=== PATIENT | female | born 1960 | race Caucasian/White ===

== ENCOUNTER → 2016-07-29 | Outpatient (CLI) | payer MEDICARE, OTHER ==
[~2016-07-29] MED LIST: ACIDOPHILUS PO; ADVAIR 100/28 DISKUS IH; ALAVERT10 M1 PO; ALBUTEROL0.83 MG/ML IH; ASPIR-LOW81 MG PO; ASPIRIN E.C. 8181 MG PO; BENTYL 10MG10 MG/CAP PO; BIOTIN10000 MC1; CELEBREX 200MG200 MG PO; CELEXA 20MG20 MG/TAB PO; CENTRUM1 TAB PO; CHANTIX0.5 MG PO; CLEOCIN HC150 MG/CAP PO; CREON 120000 U-1 ECC PO; CYMBALTA 60MG60 MG; DYAZIDE 25 MG-31 CAP PO; ELAVIL100 MG PO; FISH OIL SUPER1 SGL PO; FLEXERIL 1010 MG/TAB PO; FLINTSTONES1 CTB PO; FLONASE NASAL S16 GM NS; GLUCOSAMIN 500 PO; IMITREX 25MG TA25 MG PO; JAKAFI15 MG PO; LORTAB 5/500 501 TAB PO; MAXALT10 MG PO; MUCINEX D1 TER PO; NIRAVAM0.25 MG PO; NORCO 325 MG-51 TAB PO; NORCO 325 MG-7.1 TAB PO; NYSTATIN OR100 MU/ML PO; PEPCID 20MG TAB20 MG PO; PERCOCET 5/321 UDTAB PO; PREDNISONE20 MG PO; PROBIOTIC FORMU1 CAP PO; PROMETHAZINE V473 M2 PO; PROTONIX 40MG T40 MG PO; PROVENTIL0.09 MG/A1 IH; QUESTRAN4 GM/9 GM PO; REMERON SOLTAB45 MG PO; ROXICODONE 55 MG/TAB PO; RT ADVAIR 228 DISKUS IH; SINGULAIR 110 MG/TAB PO; SINGULAIR10 MG PO; SPIRIVA; SSKI PO; TRAMADOL50 MG PO; TUMS 5001250 MG PO; ULTRAM 50MG TAB50 MG PO; VOLTAREN 50MG T50 MG PO; VOLTAREN GEL 1%1 TU TP; ZOFRAN 4MG T4 MG/TAB PO; ZOFRAN ODT8 MG PO; iron; see list
[2016-07-29 11:25] LABS: BASO % 0.5 % (0.0-2.0); EOS # 0.2 (0.0-0.7); EOS % 2.7 % (0-4.0); GRAN # 4.1 (1.4-6.5); GRAN % 53.1 % (42.2-75.2); HEMOGLOBIN 13.3 g/dl (12.5-16.0); LYMPH # 2.8 (1.2-3.4); LYMPH % 35.8 % (20.0-51.0); MEAN CELL VOLUME 84 fl (80.0-100.0); MEAN CORPUSCULAR HEMOGLOBIN 28 pg (27.0-31.0); MEAN CORPUSCULAR HGB CONC 33 g/dl (33.0-37.0); MEAN PLATELET VOLUME 10.1 fl (7.4-10.4); MONO # 0.6 (0.1-0.6); MONO % 7.3 % (1.7-9.3); PLATELET COUNT 625 K/mm3 (130-400); RED BLOOD COUNT 4.82 M/mm3 (4.10-5.30); REDCELL DISTRIBUTION WIDTH-CV 16.1 % (11.5-14.5); RETIC % 1.3 % (0.5-3.52); WHITE BLOOD COUNT 7.7 K/mm3 (4.8-10.8)
[2016-07-29 11:46] LABS: ADJUSTED CALCIUM 9.6 mg/dL (8.4-10.2); ALBUMIN 4.9 gm/dL (3.5-5.0); BILIRUBIN,TOTAL 0.5 mg/dL (0.0-1.0); CALCIUM 10.3 mg/dL (8.4-10.2); CREATININE, serum 0.8 mg/dL (0.52-1.25); POTASSIUM 3.9 mmol/L (3.4-5.0); TOTAL PROTEIN 8.6 gm/dL (6.4-8.2)
[2016-07-29 13:47] LABS: HEMATOCRIT 40.5 % (37.0-47.0)
== END ==
LOC: COL.LAB 11:05
PROVIDERS: Internal Medicine
DX: D75.1 Secondary polycythemia (principal)

== ENCOUNTER → 2016-08-19 | Outpatient (CLI) | payer MEDICARE, OTHER ==
[2016-08-19 10:32] LABS: BASO % 0.7 % (0.0-2.0); EOS # 0.2 (0.0-0.7); GRAN # 3.2 (1.4-6.5); GRAN % 56.3 % (42.2-75.2); LYMPH # 1.7 (1.2-3.4); LYMPH % 30.4 % (20.0-51.0); MEAN CELL VOLUME 86 fl (80.0-100.0); MEAN CORPUSCULAR HGB CONC 32 g/dl (33.0-37.0); MEAN PLATELET VOLUME 9.6 fl (7.4-10.4); MONO # 0.5 (0.1-0.6); MONO % 9.4 % (1.7-9.3); PLATELET COUNT 592 K/mm3 (130-400); RED BLOOD COUNT 3.68 M/mm3 (4.10-5.30); REDCELL DISTRIBUTION WIDTH-CV 17.3 % (11.5-14.5); WHITE BLOOD COUNT 5.7 K/mm3 (4.8-10.8)
[2016-08-19 10:34] LABS: HEMOGLOBIN 10.2 g/dl (12.5-16.0); MEAN CORPUSCULAR HEMOGLOBIN 28 pg (27.0-31.0)
[2016-08-19 12:37] LABS: HEMATOCRIT 31.7 % (37.0-47.0)
== END ==
LOC: COL.LAB 10:05
PROVIDERS: Internal Medicine
DX: D75.1 Secondary polycythemia (principal)

== ENCOUNTER → 2016-09-30 | Outpatient (CLI) | payer MEDICARE ==
[2016-09-30 14:35] LABS: BASO # 0.1 (0.0-0.2); BASO % 1.1 % (0.0-2.0); EOS # 0.4 (0.0-0.7); GRAN # 5.2 (1.4-6.5); GRAN % 66.7 % (42.2-75.2); HEMOGLOBIN 12.4 g/dl (12.5-16.0); LYMPH # 1.1 (1.2-3.4); LYMPH % 14.3 % (20.0-51.0); MEAN CELL VOLUME 88 fl (80.0-100.0); MEAN CORPUSCULAR HEMOGLOBIN 29 pg (27.0-31.0); MEAN CORPUSCULAR HGB CONC 33 g/dl (33.0-37.0); MEAN PLATELET VOLUME 9.8 fl (7.4-10.4); MONO % 12.4 % (1.7-9.3); PLATELET COUNT 497 K/mm3 (130-400); RED BLOOD COUNT 4.32 M/mm3 (4.10-5.30); REDCELL DISTRIBUTION WIDTH-CV 17.4 % (11.5-14.5); WHITE BLOOD COUNT 7.8 K/mm3 (4.8-10.8)
[2016-09-30 15:02] LABS: HEMATOCRIT 37.8 % (37.0-47.0)
== END ==
LOC: COL.LAB 09:09
PROVIDERS: Internal Medicine
DX: D75.1 Secondary polycythemia (principal)

== ENCOUNTER → 2016-10-27 | Outpatient (CLI) | payer MEDICARE ==
[2016-10-27 10:25] LABS: WHITE BLOOD COUNT 5.7 K/mm3 (4.8-10.8)
[2016-10-27 10:26] LABS: HEMOGLOBIN 11.8 g/dl (12.5-16.0)
[2016-10-27 11:19] LABS: MEAN CELL VOLUME 89 fl (80.0-100.0); MEAN CORPUSCULAR HEMOGLOBIN 29 pg (27.0-31.0); MEAN CORPUSCULAR HGB CONC 33 g/dl (33.0-37.0); MEAN PLATELET VOLUME 10.1 fl (7.4-10.4); PLATELET COUNT 586 K/mm3 (130-400); RED BLOOD COUNT 4.01 M/mm3 (4.10-5.30); REDCELL DISTRIBUTION WIDTH-CV 17.2 % (11.5-14.5)
[2016-10-27 11:52] LABS: ADD PATHOLOGY DIFF REVIEW NO
[2016-10-27 12:16] LABS: BAND 3 % (0-10); BASOPHIL 1 % (0-2); EOSINOPHIL 8 % (0-4); NEUTROPHILS 35 % (42.0-75.2); TOTAL CELLS COUNTED 100
[2016-10-27 15:44] LABS: HEMATOCRIT 35.5 % (37.0-47.0)
== END ==
LOC: COL.LAB 09:08
PROVIDERS: Internal Medicine
DX: D75.1 Secondary polycythemia (principal)

== ENCOUNTER 2016-11-23 05:47 | Day surgery (SDC) | payer MEDICARE ==
[2008-02-11 04:48] VITALS: BP 138/64
[~2016-11-23] VITALS: Ht 165.1 cm; Wt 91.9 kg
[2016-11-23] VITALS (8 sets, daily range): BP systolic 118–133; BP diastolic 68–77; PULSE 91–98; TEMP 97.3–98.2
[~2016-11-23 05:47] MED LIST changes: -ALBUTEROL0.83 MG/ML IH; -FLONASE NASAL S16 GM NS; -MAXALT10 MG PO; -MUCINEX D1 TER PO; -NYSTATIN OR100 MU/ML PO; -PROBIOTIC FORMU1 CAP PO; -PROMETHAZINE V473 M2 PO; -PROVENTIL0.09 MG/A1 IH; -RT ADVAIR 228 DISKUS IH; -VOLTAREN 50MG T50 MG PO; -VOLTAREN GEL 1%1 TU TP; -ZOFRAN ODT8 MG PO
[2016-11-23] MEDS ORDERED: PROVENTIL0.09 MG/A1 IH (06:35)
[2016-11-23] MEDS ORDERED: ALBUTEROL0.83 MG/ML IH (06:36)
[2016-11-23] MEDS ORDERED: FLONASE NASAL S16 GM NS (06:42)
[2016-11-23] MEDS ORDERED: RT ADVAIR 228 DISKUS IH (06:43)
[2016-11-23] MEDS ORDERED: NYSTATIN OR100 MU/ML PO (06:46)
[2016-11-23] MEDS ORDERED: ZOFRAN ODT8 MG PO (06:49)
[2016-11-23] MEDS ORDERED: PROBIOTIC FORMU1 CAP PO (06:50)
[2016-11-23] MEDS ORDERED: MUCINEX D1 TER PO (06:51)
[2016-11-23] MEDS ORDERED: PROMETHAZINE V473 M2 PO (06:51)
[2016-11-23] MEDS ORDERED: ULTRAM 50MG TAB50 MG PO (06:52)
[2016-11-23] MEDS ORDERED: VOLTAREN GEL 1%1 TU TP (06:54)
[2016-11-23] MEDS ORDERED: MAXALT10 MG PO (06:59)
[2016-11-23] MEDS ORDERED: VOLTAREN 50MG T50 MG PO (06:59)
[2016-11-23] MEDS ORDERED: NORCO 325 MG-7.1 TAB PO (14:22)
[2016-11-23] MEDS ORDERED: ROXICODONE 55 MG/TAB PO (14:23)
== END 2016-11-23 15:00 | disposition home or self-care (01) ==
LOC: SDCO 05:47
DX: S46.012A Strain of muscle(s) and tendon(s) of the rotator cuff of left shoulder, initial encounter (principal); W19.XXXA Unspecified fall, initial encounter; Y93.89 Activity, other specified; D45 Polycythemia vera; J44.9 Chronic obstructive pulmonary disease, unspecified; K21.9 Gastro-esophageal reflux disease without esophagitis; E78.00 Pure hypercholesterolemia, unspecified; K30 Functional dyspepsia; K58.9 Irritable bowel syndrome, unspecified; G43.909 Migraine, unspecified, not intractable, without status migrainosus; R53.82 Chronic fatigue, unspecified; G47.30 Sleep apnea, unspecified; M77.9 Enthesopathy, unspecified; R41.0 Disorientation, unspecified; R13.10 Dysphagia, unspecified; F17.210 Nicotine dependence, cigarettes, uncomplicated; R73.9 Hyperglycemia, unspecified; C44.91 Basal cell carcinoma of skin, unspecified
CPT/HCPCS: C1713; J0171; J0690; J1100; J2250; J2370; J2405; J2704; J2795; J3010; J7120

== ENCOUNTER → 2016-11-25 | Outpatient (CLI) | payer MEDICARE ==
[~2016-11-25] MED LIST changes: +ALBUTEROL0.83 MG/ML IH; +FLONASE NASAL S16 GM NS; +MAXALT10 MG PO; +MUCINEX D1 TER PO; +NYSTATIN OR100 MU/ML PO; +PROBIOTIC FORMU1 CAP PO; +PROMETHAZINE V473 M2 PO; +PROVENTIL0.09 MG/A1 IH; +RT ADVAIR 228 DISKUS IH; +VOLTAREN 50MG T50 MG PO; +VOLTAREN GEL 1%1 TU TP; +ZOFRAN ODT8 MG PO
[2016-11-25 10:55] LABS: BASO # 0.1 (0.0-0.2); BASO % 0.6 % (0.0-2.0); EOS # 0.2 (0.0-0.7); EOS % 2.2 % (0-4.0); GRAN % 61.4 % (42.2-75.2); LYMPH # 2.7 (1.2-3.4); LYMPH % 27.2 % (20.0-51.0); MEAN CELL VOLUME 92 fl (80.0-100.0); MEAN CORPUSCULAR HGB CONC 33 g/dl (33.0-37.0); MEAN PLATELET VOLUME 9.5 fl (7.4-10.4); MONO # 0.8 (0.1-0.6); MONO % 8.3 % (1.7-9.3); PLATELET COUNT 519 K/mm3 (130-400); RED BLOOD COUNT 3.37 M/mm3 (4.10-5.30); REDCELL DISTRIBUTION WIDTH-CV 15.9 % (11.5-14.5); WHITE BLOOD COUNT 9.8 K/mm3 (4.8-10.8)
[2016-11-25 10:56] LABS: HEMOGLOBIN 10.1 g/dl (12.5-16.0); MEAN CORPUSCULAR HEMOGLOBIN 30 pg (27.0-31.0)
[2016-11-25 10:57] LABS: HEMATOCRIT 31.1 % (37.0-47.0)
== END ==
LOC: COL.LAB 09:16
PROVIDERS: Internal Medicine
DX: Z01.89 Encounter for other specified special examinations (principal)

== ENCOUNTER → 2016-12-30 | Outpatient (CLI) | payer MEDICARE ==
[2016-12-30 10:43] LABS: BASO % 0.6 % (0.0-2.0); EOS # 0.1 (0.0-0.7); EOS % 1.9 % (0-4.0); GRAN # 5.4 (1.4-6.5); GRAN % 75.3 % (42.2-75.2); HEMOGLOBIN 12.4 g/dl (12.5-16.0); LYMPH % 13.4 % (20.0-51.0); MEAN CELL VOLUME 89 fl (80.0-100.0); MEAN CORPUSCULAR HEMOGLOBIN 30 pg (27.0-31.0); MEAN CORPUSCULAR HGB CONC 34 g/dl (33.0-37.0); MONO # 0.6 (0.1-0.6); MONO % 8.4 % (1.7-9.3); PLATELET COUNT 463 K/mm3 (130-400); RED BLOOD COUNT 4.15 M/mm3 (4.10-5.30); REDCELL DISTRIBUTION WIDTH-CV 14.5 % (11.5-14.5); WHITE BLOOD COUNT 7.2 K/mm3 (4.8-10.8)
[2016-12-30 10:54] LABS: ADJUSTED CALCIUM 9.1 mg/dL (8.4-10.2); ALBUMIN 4.4 gm/dL (3.5-5.0); BILIRUBIN,TOTAL 0.5 mg/dL (0.0-1.0); CALCIUM 9.4 mg/dL (8.4-10.2); CREATININE, serum 0.84 mg/dL (0.52-1.25); POTASSIUM 4.3 mmol/L (3.4-5.0); TOTAL PROTEIN 7.2 gm/dL (6.4-8.2)
[2016-12-30 11:10] LABS: HEMATOCRIT 36.8 % (37.0-47.0)
== END ==
LOC: COL.LAB 09:59
PROVIDERS: Internal Medicine
DX: D75.1 Secondary polycythemia (principal)

== ENCOUNTER → 2017-01-27 | Outpatient (CLI) | payer MEDICARE ==
[2017-01-27 10:25] LABS: BASO % 0.6 % (0.0-2.0); EOS # 0.1 (0.0-0.7); EOS % 1.9 % (0-4.0); GRAN # 3.4 (1.4-6.5); GRAN % 52.3 % (42.2-75.2); HEMOGLOBIN 12.3 g/dl (12.5-16.0); LYMPH # 2.2 (1.2-3.4); LYMPH % 33.7 % (20.0-51.0); MEAN CELL VOLUME 89 fl (80.0-100.0); MEAN CORPUSCULAR HEMOGLOBIN 30 pg (27.0-31.0); MEAN CORPUSCULAR HGB CONC 34 g/dl (33.0-37.0); MEAN PLATELET VOLUME 9.7 fl (7.4-10.4); MONO # 0.7 (0.1-0.6); MONO % 10.9 % (1.7-9.3); PLATELET COUNT 544 K/mm3 (130-400); RED BLOOD COUNT 4.09 M/mm3 (4.10-5.30); REDCELL DISTRIBUTION WIDTH-CV 14.9 % (11.5-14.5); WHITE BLOOD COUNT 6.4 K/mm3 (4.8-10.8)
[2017-01-27 10:41] LABS: HEMATOCRIT 36.3 % (37.0-47.0)
== END ==
LOC: COL.LAB 10:06
PROVIDERS: Internal Medicine
DX: D75.1 Secondary polycythemia (principal)

== ENCOUNTER → 2017-03-09 | Outpatient (CLI) | payer MEDICARE ==
[2017-03-09 11:20] LABS: BASO # 0.1 (0.0-0.2); BASO % 0.7 % (0.0-2.0); EOS # 0.2 (0.0-0.7); EOS % 2.5 % (0-4.0); GRAN # 3.6 (1.4-6.5); GRAN % 52.9 % (42.2-75.2); HEMOGLOBIN 12.7 g/dl (12.5-16.0); LYMPH # 2.4 (1.2-3.4); LYMPH % 35.4 % (20.0-51.0); MEAN CELL VOLUME 89 fl (80.0-100.0); MEAN CORPUSCULAR HEMOGLOBIN 29 pg (27.0-31.0); MEAN CORPUSCULAR HGB CONC 33 g/dl (33.0-37.0); MEAN PLATELET VOLUME 9.6 fl (7.4-10.4); MONO # 0.6 (0.1-0.6); MONO % 8.1 % (1.7-9.3); PLATELET COUNT 723 K/mm3 (130-400); RED BLOOD COUNT 4.41 M/mm3 (4.10-5.30); WHITE BLOOD COUNT 6.8 K/mm3 (4.8-10.8)
[2017-03-09 11:25] LABS: HEMATOCRIT 39.1 % (37.0-47.0)
== END ==
LOC: COL.LAB 03-03 16:06
PROVIDERS: Internal Medicine
DX: D75.1 Secondary polycythemia (principal)

== ENCOUNTER → 2017-03-23 | Outpatient (CLI) | payer MEDICARE ==
[2017-03-23 09:29] LABS: BASO % 0.4 % (0.0-2.0); EOS # 0.1 (0.0-0.7); EOS % 1.4 % (0-4.0); GRAN # 4.8 (1.4-6.5); GRAN % 58.7 % (42.2-75.2); LYMPH # 2.5 (1.2-3.4); LYMPH % 31.3 % (20.0-51.0); MEAN CELL VOLUME 89 fl (80.0-100.0); MEAN CORPUSCULAR HGB CONC 33 g/dl (33.0-37.0); MEAN PLATELET VOLUME 9.3 fl (7.4-10.4); MONO # 0.6 (0.1-0.6); MONO % 7.8 % (1.7-9.3); PLATELET COUNT 590 K/mm3 (130-400); RED BLOOD COUNT 3.85 M/mm3 (4.10-5.30); REDCELL DISTRIBUTION WIDTH-CV 16.1 % (11.5-14.5); WHITE BLOOD COUNT 8.1 K/mm3 (4.8-10.8)
[2017-03-23 09:30] LABS: HEMATOCRIT 34.3 % (37.0-47.0); HEMOGLOBIN 11.4 g/dl (12.5-16.0); MEAN CORPUSCULAR HEMOGLOBIN 30 pg (27.0-31.0)
== END ==
LOC: COL.LAB 08:57
PROVIDERS: Internal Medicine
DX: D75.1 Secondary polycythemia (principal)

== ENCOUNTER → 2017-04-06 | Outpatient (CLI) | payer MEDICARE ==
[2017-04-06 11:33] LABS: BASO % 0.7 % (0.0-2.0); EOS # 0.1 (0.0-0.7); EOS % 1.8 % (0-4.0); GRAN # 2.5 (1.4-6.5); GRAN % 56.7 % (42.2-75.2); LYMPH # 1.4 (1.2-3.4); LYMPH % 31.7 % (20.0-51.0); MEAN CELL VOLUME 91 fl (80.0-100.0); MEAN CORPUSCULAR HGB CONC 33 g/dl (33.0-37.0); MEAN PLATELET VOLUME 9.3 fl (7.4-10.4); MONO # 0.4 (0.1-0.6); MONO % 8.9 % (1.7-9.3); PLATELET COUNT 586 K/mm3 (130-400); RED BLOOD COUNT 3.62 M/mm3 (4.10-5.30); REDCELL DISTRIBUTION WIDTH-CV 17.3 % (11.5-14.5); WHITE BLOOD COUNT 4.4 K/mm3 (4.8-10.8)
[2017-04-06 11:35] LABS: HEMOGLOBIN 10.8 g/dl (12.5-16.0); MEAN CORPUSCULAR HEMOGLOBIN 30 pg (27.0-31.0)
[2017-04-06 11:48] LABS: HEMATOCRIT 32.9 % (37.0-47.0)
== END ==
LOC: COL.LAB 10:58
PROVIDERS: Internal Medicine
DX: D75.1 Secondary polycythemia (principal)

== ENCOUNTER → 2017-04-20 | Outpatient (CLI) | payer MEDICARE ==
[2017-04-20 09:50] LABS: BASO % 0.4 % (0.0-2.0); EOS # 0.1 (0.0-0.7); EOS % 1.1 % (0-4.0); GRAN # 2.5 (1.4-6.5); GRAN % 53.3 % (42.2-75.2); LYMPH # 1.6 (1.2-3.4); LYMPH % 34.8 % (20.0-51.0); MEAN CELL VOLUME 94 fl (80.0-100.0); MEAN CORPUSCULAR HGB CONC 33 g/dl (33.0-37.0); MEAN PLATELET VOLUME 9.2 fl (7.4-10.4); MONO # 0.5 (0.1-0.6); MONO % 10.2 % (1.7-9.3); PLATELET COUNT 606 K/mm3 (130-400); RED BLOOD COUNT 3.59 M/mm3 (4.10-5.30); WHITE BLOOD COUNT 4.7 K/mm3 (4.8-10.8)
[2017-04-20 09:54] LABS: HEMATOCRIT 33.6 % (37.0-47.0); HEMOGLOBIN 11.1 g/dl (12.5-16.0); MEAN CORPUSCULAR HEMOGLOBIN 31 pg (27.0-31.0)
== END ==
LOC: COL.LAB 08:48
PROVIDERS: Internal Medicine
DX: D75.1 Secondary polycythemia (principal)

== ENCOUNTER → 2017-05-04 | Outpatient (CLI) | payer MEDICARE ==
[2017-05-04 10:37] LABS: BASO % 0.5 % (0.0-2.0); EOS # 0.1 (0.0-0.7); EOS % 1.5 % (0-4.0); GRAN # 2.1 (1.4-6.5); GRAN % 51.3 % (42.2-75.2); HEMOGLOBIN 10.7 g/dl (12.5-16.0); LYMPH # 1.4 (1.2-3.4); LYMPH % 35.4 % (20.0-51.0); MEAN CELL VOLUME 96 fl (80.0-100.0); MEAN CORPUSCULAR HEMOGLOBIN 32 pg (27.0-31.0); MEAN CORPUSCULAR HGB CONC 33 g/dl (33.0-37.0); MEAN PLATELET VOLUME 9.3 fl (7.4-10.4); MONO # 0.5 (0.1-0.6); MONO % 11.1 % (1.7-9.3); PLATELET COUNT 389 K/mm3 (130-400); RED BLOOD COUNT 3.35 M/mm3 (4.10-5.30); WHITE BLOOD COUNT 4.1 K/mm3 (4.8-10.8)
[2017-05-04 10:40] LABS: HEMATOCRIT 32.3 % (37.0-47.0)
== END ==
LOC: COL.LAB 09:59
PROVIDERS: Internal Medicine
DX: D75.1 Secondary polycythemia (principal); I10 Essential (primary) hypertension; J43.1 Panlobular emphysema; G43.009 Migraine without aura, not intractable, without status migrainosus; G47.33 Obstructive sleep apnea (adult) (pediatric); F33.41 Major depressive disorder, recurrent, in partial remission; M15.0 Primary generalized (osteo)arthritis

== ENCOUNTER → 2017-06-22 | Outpatient (CLI) | payer MEDICARE ==
[2017-06-22 10:25] LABS: BASO % 0.5 % (0.0-2.0); EOS # 0.1 (0.0-0.7); EOS % 1.1 % (0-4.0); GRAN # 3.7 (1.4-6.5); GRAN % 59.2 % (42.2-75.2); LYMPH # 1.8 (1.2-3.4); LYMPH % 29.2 % (20.0-51.0); MEAN CELL VOLUME 102 fl (80.0-100.0); MEAN CORPUSCULAR HGB CONC 34 g/dl (33.0-37.0); MEAN PLATELET VOLUME 9.9 fl (7.4-10.4); MONO # 0.6 (0.1-0.6); MONO % 9.4 % (1.7-9.3); PLATELET COUNT 510 K/mm3 (130-400); WHITE BLOOD COUNT 6.3 K/mm3 (4.8-10.8)
[2017-06-22 10:27] LABS: HEMOGLOBIN 11.9 g/dl (12.5-16.0); MEAN CORPUSCULAR HEMOGLOBIN 35 pg (27.0-31.0)
[2017-06-22 10:33] LABS: HEMATOCRIT 34.6 % (37.0-47.0)
== END ==
LOC: COL.LAB 09:47
PROVIDERS: Internal Medicine
DX: D75.1 Secondary polycythemia (principal)

== ENCOUNTER 2017-07-03 12:27 | Emergency (ER) | payer MEDICARE ==
[2008-02-11 04:48] VITALS: BP 138/64
[~2017-07-03] VITALS: Ht 165.1 cm; Wt 93.6 kg
[2017-07-03 12:33] VITALS: TEMP 98.8
[2017-07-03 15:17] VITALS: BP 132/75
[2017-07-03 16:21] VITALS: PULSE 84
== END 2017-07-03 16:23 | disposition home or self-care (01) ==
LOC: COL.ER 12:27
DX: J11.1 Influenza due to unidentified influenza virus with other respiratory manifestations (principal); B34.9 Viral infection, unspecified; B37.0 Candidal stomatitis; I10 Essential (primary) hypertension; K21.9 Gastro-esophageal reflux disease without esophagitis; J44.9 Chronic obstructive pulmonary disease, unspecified; D45 Polycythemia vera; G43.909 Migraine, unspecified, not intractable, without status migrainosus; F17.210 Nicotine dependence, cigarettes, uncomplicated; Z90.710 Acquired absence of both cervix and uterus; Z90.49 Acquired absence of other specified parts of digestive tract; Z90.89 Acquired absence of other organs; Z79.82 Long term (current) use of aspirin
CPT/HCPCS: J1450; J1885; J7030

== ENCOUNTER → 2017-08-03 | Outpatient (CLI) | payer MEDICARE ==
[2017-08-03 14:21] LABS: BASO % 0.3 % (0.0-2.0); EOS # 0.1 (0.0-0.7); EOS % 1.7 % (0-4.0); GRAN # 1.7 (1.4-6.5); GRAN % 48.4 % (42.2-75.2); HEMOGLOBIN 9.7 g/dl (12.5-16.0); LYMPH # 1.3 (1.2-3.4); LYMPH % 36.9 % (20.0-51.0); MEAN CELL VOLUME 107 fl (80.0-100.0); MEAN CORPUSCULAR HEMOGLOBIN 36 pg (27.0-31.0); MEAN CORPUSCULAR HGB CONC 34 g/dl (33.0-37.0); MONO # 0.4 (0.1-0.6); MONO % 12.1 % (1.7-9.3); PLATELET COUNT 650 K/mm3 (130-400); RED BLOOD COUNT 2.66 M/mm3 (4.10-5.30); REDCELL DISTRIBUTION WIDTH-CV 14.5 % (11.5-14.5)
[2017-08-03 14:32] LABS: HEMATOCRIT 28.4 % (37.0-47.0)
== END ==
LOC: COL.LAB 07-20 15:02
PROVIDERS: Internal Medicine
DX: D75.1 Secondary polycythemia (principal)

== ENCOUNTER → 2017-08-24 | Outpatient (CLI) | payer MEDICARE ==
[2017-08-24 14:03] LABS: BASO % 0.5 % (0.0-2.0); EOS # 0.1 (0.0-0.7); EOS % 1.1 % (0-4.0); GRAN # 4.4 (1.4-6.5); GRAN % 67.5 % (42.2-75.2); LYMPH # 1.1 (1.2-3.4); LYMPH % 16.8 % (20.0-51.0); MEAN CELL VOLUME 108 fl (80.0-100.0); MEAN CORPUSCULAR HGB CONC 33 g/dl (33.0-37.0); MEAN PLATELET VOLUME 9.9 fl (7.4-10.4); MONO # 0.9 (0.1-0.6); MONO % 13.8 % (1.7-9.3); PLATELET COUNT 779 K/mm3 (130-400); RED BLOOD COUNT 2.82 M/mm3 (4.10-5.30); REDCELL DISTRIBUTION WIDTH-CV 15.3 % (11.5-14.5)
[2017-08-24 14:06] LABS: HEMOGLOBIN 10.2 g/dl (12.5-16.0); MEAN CORPUSCULAR HEMOGLOBIN 36 pg (27.0-31.0)
[2017-08-24 14:16] LABS: HEMATOCRIT 30.5 % (37.0-47.0)
== END ==
LOC: COL.LAB 13:41
PROVIDERS: Internal Medicine
DX: D75.1 Secondary polycythemia (principal)

== ENCOUNTER → 2017-08-31 | Outpatient (CLI) | payer MEDICARE ==
[2017-08-31 08:19] LABS: BASO # 0.1 (0.0-0.2); EOS # 0.1 (0.0-0.7); EOS % 1.8 % (0-4.0); GRAN # 2.5 (1.4-6.5); GRAN % 48.7 % (42.2-75.2); LYMPH # 1.7 (1.2-3.4); LYMPH % 33.1 % (20.0-51.0); MEAN CELL VOLUME 107 fl (80.0-100.0); MEAN CORPUSCULAR HGB CONC 33 g/dl (33.0-37.0); MEAN PLATELET VOLUME 9.8 fl (7.4-10.4); MONO # 0.8 (0.1-0.6); PLATELET COUNT 500 K/mm3 (130-400); RED BLOOD COUNT 2.88 M/mm3 (4.10-5.30); REDCELL DISTRIBUTION WIDTH-CV 14.9 % (11.5-14.5)
[2017-08-31 08:26] LABS: HEMATOCRIT 30.7 % (37.0-47.0); HEMOGLOBIN 10.1 g/dl (12.5-16.0); MEAN CORPUSCULAR HEMOGLOBIN 35 pg (27.0-31.0)
== END ==
LOC: COL.LAB 07:37
PROVIDERS: Internal Medicine
DX: D75.1 Secondary polycythemia (principal); R53.83 Other fatigue

== ENCOUNTER → 2017-09-07 | Outpatient (CLI) | payer MEDICARE ==
[2017-09-07 10:33] LABS: BASO % 0.6 % (0.0-2.0); EOS # 0.1 (0.0-0.7); EOS % 1.4 % (0-4.0); GRAN # 4.1 (1.4-6.5); GRAN % 63.4 % (42.2-75.2); LYMPH # 1.5 (1.2-3.4); LYMPH % 23.6 % (20.0-51.0); MEAN CELL VOLUME 106 fl (80.0-100.0); MEAN CORPUSCULAR HGB CONC 33 g/dl (33.0-37.0); MEAN PLATELET VOLUME 10.7 fl (7.4-10.4); MONO # 0.7 (0.1-0.6); MONO % 10.4 % (1.7-9.3); PLATELET COUNT 350 K/mm3 (130-400); REDCELL DISTRIBUTION WIDTH-CV 15.5 % (11.5-14.5)
[2017-09-07 10:35] LABS: HEMATOCRIT 31.7 % (37.0-47.0); HEMOGLOBIN 10.6 g/dl (12.5-16.0); MEAN CORPUSCULAR HEMOGLOBIN 35 pg (27.0-31.0)
== END ==
LOC: COL.LAB 10:11
PROVIDERS: Internal Medicine
DX: D75.1 Secondary polycythemia (principal)

== ENCOUNTER → 2017-09-21 | Outpatient (CLI) | payer MEDICARE ==
[2017-09-21 09:05] LABS: BASO # 0.1 (0.0-0.2); EOS # 0.1 (0.0-0.7); EOS % 2.4 % (0-4.0); GRAN % 59.1 % (42.2-75.2); LYMPH # 1.3 (1.2-3.4); LYMPH % 25.3 % (20.0-51.0); MEAN CELL VOLUME 106 fl (80.0-100.0); MEAN CORPUSCULAR HGB CONC 33 g/dl (33.0-37.0); MEAN PLATELET VOLUME 9.5 fl (7.4-10.4); MONO # 0.6 (0.1-0.6); PLATELET COUNT 481 K/mm3 (130-400); RED BLOOD COUNT 3.27 M/mm3 (4.10-5.30); REDCELL DISTRIBUTION WIDTH-CV 15.1 % (11.5-14.5); RETIC % 3.2 % (0.5-3.52)
[2017-09-21 09:06] LABS: HEMOGLOBIN 11.5 g/dl (12.5-16.0); MEAN CORPUSCULAR HEMOGLOBIN 35 pg (27.0-31.0)
[2017-09-21 09:11] LABS: HEMATOCRIT 34.8 % (37.0-47.0)
[2017-09-21 09:19] LABS: ALBUMIN 4.8 gm/dL (3.5-5.0); BILIRUBIN,TOTAL 0.3 mg/dL (0.0-1.0); CALCIUM 9.8 mg/dL (8.4-10.2); CREATININE, serum 0.9 mg/dL (0.52-1.25); POTASSIUM 5.4 mmol/L (3.4-5.0); TOTAL PROTEIN 7.7 gm/dL (6.4-8.2)
== END ==
LOC: COL.LAB 09-14 12:19
PROVIDERS: Internal Medicine
DX: D75.1 Secondary polycythemia (principal)

== ENCOUNTER → 2017-10-05 | Outpatient (CLI) | payer MEDICARE ==
[2017-10-05 08:47] LABS: BASO # 0.1 (0.0-0.2); BASO % 0.9 % (0.0-2.0); EOS # 0.2 (0.0-0.7); EOS % 2.9 % (0-4.0); LYMPH # 1.6 (1.2-3.4); LYMPH % 29.2 % (20.0-51.0); MEAN CELL VOLUME 107 fl (80.0-100.0); MEAN CORPUSCULAR HEMOGLOBIN 36 pg (27.0-31.0); MEAN CORPUSCULAR HGB CONC 33 g/dl (33.0-37.0); MEAN PLATELET VOLUME 9.5 fl (7.4-10.4); MONO # 0.7 (0.1-0.6); MONO % 11.8 % (1.7-9.3); PLATELET COUNT 610 K/mm3 (130-400); RED BLOOD COUNT 3.64 M/mm3 (4.10-5.30); REDCELL DISTRIBUTION WIDTH-CV 14.9 % (11.5-14.5)
[2017-10-05 08:49] LABS: HEMATOCRIT 38.9 % (37.0-47.0)
== END ==
LOC: COL.LAB 08:31
PROVIDERS: Internal Medicine
DX: D45 Polycythemia vera (principal)

== ENCOUNTER → 2017-10-25 | Outpatient (CLI) | payer MEDICARE | LOC: MC.RAD 14:00 | DX: Z12.31 Encounter for screening mammogram for malignant neoplasm of breast (principal) ==

== ENCOUNTER → 2017-10-26 | Outpatient (CLI) | payer MEDICARE ==
[2017-10-26 08:28] LABS: BASO % 0.9 % (0.0-2.0); EOS # 0.1 (0.0-0.7); EOS % 2.2 % (0-4.0); GRAN # 2.5 (1.4-6.5); GRAN % 55.2 % (42.2-75.2); HEMOGLOBIN 12.1 g/dl (12.5-16.0); LYMPH # 1.4 (1.2-3.4); LYMPH % 31.3 % (20.0-51.0); MEAN CELL VOLUME 106 fl (80.0-100.0); MEAN CORPUSCULAR HEMOGLOBIN 35 pg (27.0-31.0); MEAN CORPUSCULAR HGB CONC 33 g/dl (33.0-37.0); MEAN PLATELET VOLUME 9.7 fl (7.4-10.4); MONO # 0.5 (0.1-0.6); MONO % 10.2 % (1.7-9.3); PLATELET COUNT 409 K/mm3 (130-400); RED BLOOD COUNT 3.44 M/mm3 (4.10-5.30)
[2017-10-26 09:45] LABS: HEMATOCRIT 36.5 % (37.0-47.0)
== END ==
LOC: COL.LAB 07:57
PROVIDERS: Internal Medicine
DX: D45 Polycythemia vera (principal)

== ENCOUNTER → 2017-11-16 | Outpatient (CLI) | payer MEDICARE ==
[2017-11-16 08:43] LABS: BASO % 0.5 % (0.0-2.0); EOS # 0.1 (0.0-0.7); EOS % 1.6 % (0-4.0); GRAN # 3.9 (1.4-6.5); GRAN % 67.7 % (42.2-75.2); HEMOGLOBIN 12.2 g/dl (12.5-16.0); LYMPH # 1.2 (1.2-3.4); LYMPH % 20.5 % (20.0-51.0); MEAN CELL VOLUME 104 fl (80.0-100.0); MEAN CORPUSCULAR HEMOGLOBIN 35 pg (27.0-31.0); MEAN CORPUSCULAR HGB CONC 34 g/dl (33.0-37.0); MEAN PLATELET VOLUME 9.8 fl (7.4-10.4); MONO # 0.5 (0.1-0.6); MONO % 9.3 % (1.7-9.3); PLATELET COUNT 346 K/mm3 (130-400); RED BLOOD COUNT 3.51 M/mm3 (4.10-5.30); REDCELL DISTRIBUTION WIDTH-CV 14.8 % (11.5-14.5)
[2017-11-16 08:52] LABS: HEMATOCRIT 36.4 % (37.0-47.0)
[2017-11-16 08:57] LABS: ALBUMIN 4.4 gm/dL (3.5-5.0); BILIRUBIN,TOTAL 0.2 mg/dL (0.0-1.0); CALCIUM 9.9 mg/dL (8.4-10.2); CREATININE, serum 0.77 mg/dL (0.52-1.25); POTASSIUM 4.8 mmol/L (3.4-5.0); TOTAL PROTEIN 8.2 gm/dL (6.4-8.2)
== END ==
LOC: COL.LAB 08:01
PROVIDERS: Internal Medicine
DX: D45 Polycythemia vera (principal)

== ENCOUNTER → 2017-12-07 | Outpatient (CLI) | payer MEDICARE ==
[2017-12-07 08:38] LABS: BASO # 0.1 (0.0-0.2); BASO % 1.3 % (0.0-2.0); EOS # 0.1 (0.0-0.7); EOS % 2.4 % (0-4.0); GRAN # 1.9 (1.4-6.5); GRAN % 49.5 % (42.2-75.2); HEMOGLOBIN 11.6 g/dl (12.5-16.0); LYMPH # 1.3 (1.2-3.4); LYMPH % 33.7 % (20.0-51.0); MEAN CELL VOLUME 103 fl (80.0-100.0); MEAN CORPUSCULAR HEMOGLOBIN 35 pg (27.0-31.0); MEAN CORPUSCULAR HGB CONC 34 g/dl (33.0-37.0); MEAN PLATELET VOLUME 9.5 fl (7.4-10.4); MONO # 0.5 (0.1-0.6); MONO % 12.8 % (1.7-9.3); PLATELET COUNT 262 K/mm3 (130-400); RED BLOOD COUNT 3.35 M/mm3 (4.10-5.30); REDCELL DISTRIBUTION WIDTH-CV 14.9 % (11.5-14.5)
[2017-12-07 09:07] LABS: HEMATOCRIT 34.5 % (37.0-47.0)
== END ==
LOC: COL.LAB 07:45
PROVIDERS: Internal Medicine
DX: D45 Polycythemia vera (principal)

== ENCOUNTER → 2017-12-28 | Outpatient (CLI) | payer MEDICARE ==
[2017-12-28 09:42] LABS: BASO % 0.8 % (0.0-2.0); EOS # 0.1 (0.0-0.7); EOS % 2.3 % (0-4.0); GRAN # 2.3 (1.4-6.5); GRAN % 57.3 % (42.2-75.2); LYMPH # 1.2 (1.2-3.4); LYMPH % 28.8 % (20.0-51.0); MEAN CELL VOLUME 104 fl (80.0-100.0); MEAN CORPUSCULAR HGB CONC 33 g/dl (33.0-37.0); MONO # 0.4 (0.1-0.6); PLATELET COUNT 177 K/mm3 (130-400); RED BLOOD COUNT 2.72 M/mm3 (4.10-5.30)
[2017-12-28 09:43] LABS: HEMOGLOBIN 9.4 g/dl (12.5-16.0); MEAN CORPUSCULAR HEMOGLOBIN 35 pg (27.0-31.0)
[2017-12-28 09:46] LABS: HEMATOCRIT 28.4 % (37.0-47.0)
== END ==
LOC: COL.LAB 08:58
PROVIDERS: Internal Medicine Hematology & Oncology
DX: D45 Polycythemia vera (principal)

== ENCOUNTER → 2018-01-25 | Outpatient (CLI) | payer MEDICARE ==
[2018-01-25 08:35] LABS: BASO # 0.1 (0.0-0.2); BASO % 0.8 % (0.0-2.0); EOS # 0.1 (0.0-0.7); EOS % 1.8 % (0-4.0); GRAN % 64.9 % (42.2-75.2); HEMOGLOBIN 10.9 g/dl (12.5-16.0); LYMPH # 1.5 (1.2-3.4); LYMPH % 24.6 % (20.0-51.0); MEAN CELL VOLUME 104 fl (80.0-100.0); MEAN CORPUSCULAR HEMOGLOBIN 35 pg (27.0-31.0); MEAN CORPUSCULAR HGB CONC 33 g/dl (33.0-37.0); MONO # 0.4 (0.1-0.6); MONO % 6.9 % (1.7-9.3); PLATELET COUNT 345 K/mm3 (130-400); RED BLOOD COUNT 3.16 M/mm3 (4.10-5.30); REDCELL DISTRIBUTION WIDTH-CV 17.5 % (11.5-14.5)
[2018-01-25 08:50] LABS: ALBUMIN 4.2 gm/dL (3.5-5.0); BILIRUBIN,TOTAL 0.1 mg/dL (0.0-1.0); CALCIUM 9.1 mg/dL (8.4-10.2); CREATININE, serum 0.75 mg/dL (0.52-1.25); POTASSIUM 3.4 mmol/L (3.4-5.0); TOTAL PROTEIN 7.2 gm/dL (6.4-8.2)
== END ==
LOC: COL.LAB 08:01
PROVIDERS: Internal Medicine Hematology & Oncology
DX: D45 Polycythemia vera (principal)

== ENCOUNTER → 2018-03-15 | Outpatient (CLI) | payer MEDICARE ==
[2018-03-15 10:23] LABS: BASO # 0.1 (0.0-0.2); BASO % 0.9 % (0.0-2.0); EOS # 0.1 (0.0-0.7); EOS % 2.5 % (0-4.0); GRAN # 3.1 (1.4-6.5); GRAN % 55.6 % (42.2-75.2); LYMPH # 1.8 (1.2-3.4); LYMPH % 31.9 % (20.0-51.0); MEAN CELL VOLUME 105 fl (80.0-100.0); MEAN CORPUSCULAR HEMOGLOBIN 35 pg (27.0-31.0); MEAN CORPUSCULAR HGB CONC 33 g/dl (33.0-37.0); MEAN PLATELET VOLUME 9.7 fl (7.4-10.4); MONO # 0.5 (0.1-0.6); PLATELET COUNT 428 K/mm3 (130-400); RED BLOOD COUNT 3.45 M/mm3 (4.10-5.30); REDCELL DISTRIBUTION WIDTH-CV 17.3 % (11.5-14.5)
[2018-03-15 10:42] LABS: ALBUMIN 4.3 gm/dL (3.5-5.0); BILIRUBIN,TOTAL 0.2 mg/dL (0.0-1.0); CALCIUM 9.3 mg/dL (8.4-10.2); CREATININE, serum 0.72 mg/dL (0.52-1.25); POTASSIUM 3.8 mmol/L (3.4-5.0); TOTAL PROTEIN 7.6 gm/dL (6.4-8.2)
[2018-03-15 11:03] LABS: HEMATOCRIT 36.3 % (37.0-47.0)
== END ==
LOC: COL.LAB 02-15 15:39
PROVIDERS: Internal Medicine Hematology & Oncology
DX: D45 Polycythemia vera (principal)

== ENCOUNTER → 2018-04-24 | Outpatient (CLI) | payer MEDICARE ==
[2018-04-24 11:17] LABS: BASO # 0.1 (0.0-0.2); BASO % 0.8 % (0.0-2.0); EOS # 0.1 (0.0-0.7); EOS % 1.1 % (0-4.0); GRAN # 4.9 (1.4-6.5); GRAN % 66.5 % (42.2-75.2); HEMOGLOBIN 11.3 g/dl (12.5-16.0); LYMPH # 1.6 (1.2-3.4); LYMPH % 21.2 % (20.0-51.0); MEAN CELL VOLUME 108 fl (80.0-100.0); MEAN CORPUSCULAR HEMOGLOBIN 35 pg (27.0-31.0); MEAN CORPUSCULAR HGB CONC 32 g/dl (33.0-37.0); MEAN PLATELET VOLUME 9.6 fl (7.4-10.4); MONO # 0.7 (0.1-0.6); MONO % 9.7 % (1.7-9.3); PLATELET COUNT 425 K/mm3 (130-400); RED BLOOD COUNT 3.24 M/mm3 (4.10-5.30); REDCELL DISTRIBUTION WIDTH-CV 15.9 % (11.5-14.5)
[2018-04-24 11:27] LABS: ALBUMIN 4.4 gm/dL (3.5-5.0); BILIRUBIN,TOTAL 0.2 mg/dL (0.0-1.0); CALCIUM 9.5 mg/dL (8.4-10.2); CREATININE, serum 0.75 mg/dL (0.52-1.25); POTASSIUM 3.5 mmol/L (3.4-5.0)
== END ==
LOC: COL.LAB 10:45
PROVIDERS: Internal Medicine Hematology & Oncology
DX: D45 Polycythemia vera (principal)

== ENCOUNTER 2018-06-05 10:59 | Day surgery (SDC) | payer MEDICARE ==
[2008-02-11 04:48] VITALS: BP 138/64
[~2018-06-05] VITALS: Ht 165.1 cm; Wt 90.0 kg
[2018-06-05] VITALS (9 sets, daily range): BP systolic 95–129; BP diastolic 50–74; PULSE 94–120; TEMP 97.6–98.3
[~2018-06-05 10:59] MED LIST changes: +AMITRIPTYLINE H75 M1 PO; -BIOTIN10000 MC1; +BIOTIN10000 MC1 PO; -CYMBALTA 60MG60 MG; +CYMBALTA 60MG60 MG PO; -ELAVIL100 MG PO; +JAKAFI10 MG PO; -JAKAFI15 MG PO
[2018-06-05] MEDS ORDERED: AMITIZA 8MCG8 MCG PO (12:27)
[2018-06-05] MEDS ORDERED: AMITRIPTYLINE H25 M1 PO (12:30)
[2018-06-05] MEDS ORDERED: CYMBALTA 30MG30 MG PO (12:40)
[2018-06-05] MEDS ORDERED: DIFLUCAN 100MG100 MG PO (12:52)
[2018-06-05] MEDS ORDERED: HYDROXYURE500 MG/CAP PO (12:53)
[2018-06-06 05:09] VITALS: BP 102/54; BP 124/74; PULSE 108; PULSE 60; PULSE 608; TEMP 97.6; TEMP 97.9
[2018-06-06 07:45] VITALS: BP 112/60; PULSE 85; TEMP 97.5
== END 2018-06-06 12:20 | disposition home or self-care (01) ==
LOC: SDCO 10:59 → SURG 18:02 → SDCO 06-06 12:20
DX: M75.122 Complete rotator cuff tear or rupture of left shoulder, not specified as traumatic (principal); Z79.82 Long term (current) use of aspirin; Z88.8 Allergy status to other drugs, medicaments and biological substances; D64.9 Anemia, unspecified; M19.90 Unspecified osteoarthritis, unspecified site; J45.909 Unspecified asthma, uncomplicated; R53.82 Chronic fatigue, unspecified; J44.9 Chronic obstructive pulmonary disease, unspecified; M79.7 Fibromyalgia; Z90.49 Acquired absence of other specified parts of digestive tract; K21.9 Gastro-esophageal reflux disease without esophagitis; E78.00 Pure hypercholesterolemia, unspecified; G43.909 Migraine, unspecified, not intractable, without status migrainosus; D45 Polycythemia vera; G47.33 Obstructive sleep apnea (adult) (pediatric); F17.210 Nicotine dependence, cigarettes, uncomplicated; Z82.49 Family history of ischemic heart disease and other diseases of the circulatory system; Z80.3 Family history of malignant neoplasm of breast; Z83.3 Family history of diabetes mellitus; Z80.0 Family history of malignant neoplasm of digestive organs; Z80.9 Family history of malignant neoplasm, unspecified
CPT/HCPCS: OP; C1713; J1100; J1885; J2250; J2405; J2704; J3010; J7120; Q4125